=== PATIENT | female | born 1955 | race Caucasian/White ===

== ENCOUNTER → 2016-11-01 | Outpatient (CLI) | payer OTHER | LOC: FIMAGING 08:37 | PROVIDERS: ATTEND Family Medicine | DX: Z12.31 Encounter for screening mammogram for malignant neoplasm of breast (principal); Z80.3 Family history of malignant neoplasm of breast | CPT/HCPCS: G0202 ==

== ENCOUNTER → 2017-07-14 | Outpatient (CLI) | payer OTHER | LOC: BMCIMAGING 12:50 | PROVIDERS: ATTEND Obstetrics & Gynecology | DX: N81.2 Incomplete uterovaginal prolapse (principal); Z78.0 Asymptomatic menopausal state; Z90.721 Acquired absence of ovaries, unilateral ==

== ENCOUNTER → 2017-12-19 | Outpatient (CLI) | payer OTHER | LOC: FIMAGING 11:27 | PROVIDERS: ATTEND Family Medicine | DX: Z12.31 Encounter for screening mammogram for malignant neoplasm of breast (principal); Z80.3 Family history of malignant neoplasm of breast ==

== ENCOUNTER 2018-01-07 05:43 | Observation (INO) | payer OTHER ==
[2018-01-07] MEDS ORDERED: LR 1,000 ML IV ONE (06:02)
--- NOTE | 2018-01-07 07:07 | PDANEPAE ---
ANE Past Medical History - Cardiovascular History Hx Hypertension: No Hx Arrhythmias: No Hx Chest Pain: No Hx Coronary Artery / Peripheral Vascular Disease: No Hx CHF / Valvular Disease: No Hx Palpitations: No - Pulmonary History Hx COPD: No Hx Asthma/Reactive Airway Disease: No Hx Recent Upper Respiratory Infection: No Hx Oxygen in Use at Home: No Hx Sleep Apnea: No Sleep Apnea Screening Result - Last Documented: Negative - Neurologic History Hx Cerebrovascular Accident: No Hx Seizures: No Hx Dementia: No - Endocrine History Hx Diabetes: No - Renal History Hx Renal Disorders: No - Liver History Hx Hepatic Disorders: Yes Hepatic History Comment: 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 No treatment, has resolved. - Other Health History Other Health History: eczema. skin sensitivites to bleach. 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 tube & ovary removal 40 yrs ago ANE Review of Systems Review of Systems: - Exercise capacity METS (RN): 4 METS ANE Patient History - Allergies Allergies/Adverse Reactions: acetaminophen [From Tylenol] Allergy (Verified 12/09/17 16:32) skin problems, itching, rash Bleach (Sodium Hypochlorite) Allergy (Verified 12/09/17 16:48) Burning rash gluten Allergy (Verified 12/09/17 16:43) skin rash, itching, diarrhea maltodextrin Allergy (Verified 12/09/17 16:43) skin rash, itching, diarrhea shellfish derived Allergy (Verified 01/07/18 06:18) skin irritation, digestive issues potato statch/flour Allergy (Uncoded 12/09/17 16:43) skin rash, itching, diarrhea - Home Medications Home Medications: Cholecalciferol Vit D3 [Vitamin D3 2000 units tab (OTC)] 2,000 units PO DAILY [Last Taken 2 Weeks Ago ~12/24/17] Fluocinonide 0.05% [Lidex 0.05% Cream (RX)] 1 nettie TP BID PRN 12/05/17 [Last Taken 1 Week Ago ~12/31/17] Herbals/Supplements -Info Only 1 ea PO DAILY 12/05/17 [Last Taken 01/04/18] - NPO status NPO Since - Liquids (Date): 01/07/18 NPO Since - Liquids (Time): 01:00 NPO Since - Solids (Date): 01/06/18 NPO Since - Solids (Time): 20:00 - Smoking Hx Smoking Status: Never smoked - Family Anes Hx Family Hx Anesthesia Complications: none ANE Labs/Vital Signs - Vital Signs Blood Pressure: 107/70 Heart Rate: 71 Respiratory Rate: 18 O2 Sat (%): 95 Height: 162.56 cm Weight: 56.699 kg ANE Physical Exam - Airway Neck exam: FROM Mallampati Score: Class 2 Mouth exam: normal dental/mouth exam - Pulmonary Pulmonary: no respiratory distress - Cardiovascular Cardiovascular: regular rate and rhythym - ASA Status ASA Status: I ANE Anesthesia Plan Anesthesia Plan: general endotracheal anesthesia
--- NOTE | 2018-01-07 07:08 | PDHPUP ---
History & Physical Update H&P update statement: This history and physical update is based on an assessment of the patient which was completed after admission or registration (within 24 hours), but prior to the surgery/procedure. H&P update: H&P reviewed & patient examined, no change in patient's condition since H&P completed
[2018-01-07] MEDS ORDERED: MIDAZOLAM 2 MG/2 ML VIAL ONE (07:09)
[2018-01-07] MEDS ORDERED: fentaNYL 250 MCG/5 ML INJ ONE (07:09)
[2018-01-07] MEDS ORDERED: PROPOFOL/EMULSION 500 MG/50 ML BOTTLE IV ONE (07:10)
[2018-01-07] MEDS ORDERED: DEXAMETHASONE 4 MG/ML VIAL ONE ×2 (07:10)
[2018-01-07] MEDS ORDERED: ROCURONIUM 100 MG/10 ML VIAL ONE (07:10)
[2018-01-07] MEDS ORDERED: KETOROLAC 30 MG/1 ML SDV ONE (07:10)
[2018-01-07] MEDS ORDERED: METOCLOPRAMIDE 10 MG/2 ML VIAL ONE (07:11)
[2018-01-07] MEDS ORDERED: LIDOCAINE 2% 100 MG/5 ML SYR ONE (07:11)
[2018-01-07] MEDS ORDERED: ceFAZolin 2 GM/DEXTROSE 100 ML IV ONE (07:13)
[2018-01-07] MEDS ORDERED: CEFAZOLIN 2 GM/DEXTROSE/100 ML BAG IV ONE (07:13)
[2018-01-07] MEDS ORDERED: PROPOFOL 200 MG/20 ML VIAL ONE (08:13)
[2018-01-07] MEDS ORDERED: ONDANSETRON 4 MG/2 ML VIAL ONE (08:33)
[2018-01-07] MEDS ORDERED: SUGAMMADEX SODIUM 200 MG/2 ML VIAL IVP ONE (08:39)
[2018-01-07] MEDS ORDERED: NALOXONE HCL 0.4 MG/ML INJ IVP PRN ×2 (08:54→09:31)
[2018-01-07] MEDS ORDERED: ALBUTEROL 3 ML DEYVIAL IH PRN (08:54)
[2018-01-07] MEDS ORDERED: MEPERIDINE 25 MG/0.5 ML AMP IVP PRN ×2 (08:54→09:31)
[2018-01-07] MEDS ORDERED: ONDANSETRON 4 MG/2 ML VIAL IVP PRN (08:54)
[2018-01-07] MEDS ORDERED: fentaNYL 100 MCG/2 ML INJ IVP PRN (08:54)
[2018-01-07] MEDS ORDERED: HYDROmorphONE/DILAUDID 1 MG/ML INJ IVP PRN (08:54)
[2018-01-07] MEDS ORDERED: BUPIVACAINE/EPI 0.5% 30 ML SDV ONE (09:12)
--- NOTE | 2018-01-07 09:30 | POSTOPPROG ---
Post Op Note Date of Operation: 01/07/18 Surgeon: Domingo Post Party Planner: Carmen Mattson Anesthesiologist: Seng Anesthesia: GET(General Endotracheal) Pre-op Diagnosis: Uterovaginal prolapse, stress incontinence Post-op Diagnosis: same Procedure: robotic hyst, US Lig colpopexy, rectocele, TOT sling Findings: Ureters function at end of case Inf/Abcess present in the surg proc area at time of surgery?: No EBL: Minimal Complications: None
[2018-01-07] MEDS ORDERED: HYDROCODONE/APAP 5/325 TAB PO PRN (09:31)
[2018-01-07] MEDS ORDERED: ONDANSETRON DISINTEGRATING 4 MG TAB PO PRN (09:31)
[2018-01-07] MEDS ORDERED: PROMETHAZINE HCL 25 MG/ML INJ IVP PRN (09:31)
[2018-01-07] MEDS ORDERED: MEPERIDINE 25 MG/0.5 ML AMP ONE (09:32)
--- NOTE | 2018-01-07 09:32 | POSTANESTH ---
Post Anesthetic Evaluation Cardiovascular Status: Similar to Pre-Op Cond Respiratory Status: Similar to Pre-op Cond. Level of Consciousness/Mental Status: Mildly Sleepy, Arousable Pain Control: Adequate, Prn Tx Ordered Nausea/Vomiting Control: Adequate, Prn Tx Ordered Complications Possibly Related to Anesthesia: None Noted
[2018-01-07] MEDS: KETOROLAC 30 MG/1 ML SDV IVP SCH ×2 (14:41→20:56)
[2018-01-07] MEDS: SIMETHICONE 80 MG TAB CHEW PO SCH ×3 (17:41→22:19)
[2018-01-07] MEDS: ONDANSETRON 4 MG/2 ML VIAL IVP PRN ×2 (18:45→22:42)
[2018-01-07] MEDS: LR 1,000 ML IV SCH (20:56)
[2018-01-08] MEDS: SIMETHICONE 80 MG TAB CHEW PO SCH ×2 (00:13→19:43)
[2018-01-08] MEDS: oxyCODONE IR 5 MG TAB PO PRN ×2 (02:17→16:20)
[2018-01-08] MEDS: KETOROLAC 30 MG/1 ML SDV IVP SCH ×2 (02:50→08:02)
[2018-01-08] MEDS: DOCUSATE SODIUM 100 MG CAP PO SCH ×2 (03:49→10:25)
[2018-01-08 05:21] LABS: PLATELET COUNT 156 10^3/uL (150-400)
[2018-01-08] MEDS: LR 1,000 ML IV SCH (10:24)
[2018-01-08 16:31] VITALS: BP 110/70
--- NOTE | 2018-01-22 09:46 | GDS ---
PREOPERATIVE DIAGNOSES: 1. Uterovaginal prolapse. 2. Stress urinary incontinence. POSTOPERATIVE DIAGNOSES: 1. Uterovaginal prolapse. 2. Stress urinary incontinence. PROCEDURES: 1. Robotic-assisted total laparoscopic hysterectomy, bilateral salpingectomy, left oophorectomy. 2. Uterosacral ligament colpopexy. 3. Rectocele repair. 4. Transobturator sling. 5. Cystoscopy. HOSPITAL COURSE: The patient is a 62-year-old female with symptomatic uterovaginal prolapse. She wa s taken to the operating room on 01/07/2015, where she underwent the above-mentioned procedures witho ut complications. Her postoperative course was uneventful. On postoperative day #1, she was ambulating, voiding, and t olerating a general diet. She was discharged home on postoperative day #1 in good condition. She wa s discharged home with ibuprofen and oxycodone 5 mg for pain. She was to follow up in the office 2 w eeks after discharge. /[id number]/MODL
--- NOTE | 2018-01-22 10:00 | GOP ---
DATE OF OPERATION: 01/07/2018 SURGEON: Domingo Post MD TRAVEL SERVICE CONSULTANT: Carmen Mattson CFA. ANESTHESIA: General. PREOPERATIVE DIAGNOSIS: 1. Uterine prolapse. 2. Cystocele. 3. Rectocele. 4. Stress urinary incontinence. POSTOPERATIVE DIAGNOSIS: 1. Uterine prolapse. 2. Cystocele. 3. Rectocele. 4. Stress urinary incontinence. PROCEDURE PERFORMED: 1. Robotic-assisted total laparoscopic hysterectomy, bilateral salpingo-oophorectomy. 2. Uterosacral ligament colpopexy. 3. Rectocele repair. 4. Transobturator sling. 5. Cystoscopy. FINDINGS: SPECIMENS: Uterus, bilateral tubes, and ovaries. ESTIMATED BLOOD LOSS: Scant. DESCRIPTION OF PROCEDURE: The patient was taken to the operating room. She was identified. General anesthesia was administered and found to be adequate. She was placed in the lithotomy position and prepared and draped in normal sterile fashion. A VCare uterine manipulator was placed into the endom etrial cavity and sutured to the cervix. The Ortiz catheter was then placed. A 1 cm infraumbilical incision was made with the scalpel. The Veress needle with the CO2 gas flowing was advanced into the peritoneal cavity. The abdomen was then insufflated with carbon dioxide gas. The 12 mm trocar foll owed by the laparoscope was then inserted. The upper abdomen was unremarkable. Two lateral ports we re placed on the right, one on the left under direct visualization. She then was placed in Trendelen berenice position and the da Laura robot docked on the left side. The instruments were then brought into the abdominal cavity under direct visualization. The left round ligament was divided. The anterior leaf of the broad ligament was then incised toward the bifurcation of the left common iliac vessels. A window was created posteriorly anterior to the ureter to skeletonize the infundibulopelvic vessels. They were then cauterized and transected. The anterior leaf of the broad ligament was then incised over the left uterine vessels and across the cer vix. The bladder was gently dissected off the cervix and upper vagina. The left uterine vasculature was then cauterized and transected. The exact same procedure was performed on the patient's right s cammie. However, she did not have a right ovary. A circumferential colpotomy incision was then made wi th the hot vega and specimen removed through the vagina. The vaginal cuff was then closed with a r unning suture of 0 V-Loc 180. A bilateral uterosacral ligament colpopexy was performed by attaching the lateral aspects of the vaginal cuff to the ipsilateral uterosacral ligaments near the coccygeal-s acrospinous ligament complexes. The pelvis was then irrigated with sterile saline, and hemostasis wa s present. The robot was then undocked. The fascia was closed with 0 Vicryl, skin with 4-0 Monocryl . A transverse incision was then made along the perineal body. The posterior vaginal epithelium was un dermined with the Metzenbaum scissors and incised sagittally. The epithelium was then gently dissect ed off the underlying rectovaginal connective tissue. The connective tissue was plicated in the midl ine with interrupted sutures of 0 Vicryl. The bulbous spongiosis and transverse perineal muscles lik ewise were plicated with 0 Vicryl. The excess epithelium was then trimmed and closed with a running 2-0 Vicryl suture. A mid urethral incision was then made with a scalpel. Tunnels were created bilaterally out toward th e obturator internus muscles. Skin incisions were made over the obturator notches. The Halo trocar was placed through the left skin incision, redirected around the ischial pubic rami, and out through the vaginal incision using a vaginal finger as a guide. The sling was then attached and brought out along the same course. The exact same procedure was performed on the patient's right side. The slin g was then adjusted to allow a small mid urethral gap. The vaginal skin was closed with 3-0 Vicryl. Skin with 4-0 Monocryl. Cystoscopy was then performed. Both ureters had vigorous jets of urine. There was no evidence of bl adder nor urethral injury seen. There was no mesh nor suture within the bladder nor urethra. No obv ious pathology was seen. Anesthesia was then reversed. The patient taken to the PACU awake in stabl e condition. COMPLICATIONS: None. DISPOSITION: Patient stable to PACU. /[id number]/MODL
== END 2018-01-08 19:00 | disposition home or self-care (01) ==
LOC: F3E 05:43 → FOB 14:40
PROVIDERS: ADMIT Obstetrics & Gynecology; ATTEND Obstetrics & Gynecology
DX: N81.3 Complete uterovaginal prolapse (principal); N81.6 Rectocele; N39.3 Stress incontinence (female) (male); N81.10 Cystocele, unspecified
CPT/HCPCS: 57250; 57288; 57425; 58571; G0378; C1771; J0690; J1100; J1885; J2001; J2175; J2250; J2270; J2405; J2704; J2765; J3010